=== PATIENT | male | born 1980 | race Caucasian/White ===

== ENCOUNTER 2019-06-10 20:23 | Emergency (ER) | payer SELFPAY ==
[~2019-06-10] VITALS: Ht 182.9 cm; Wt 78.5 kg
[2019-06-10 20:27] VITALS: Ht 182.9 cm; Wt 78.5 kg
[2019-06-10 21:35] VITALS: BP 116/70
== END 2019-06-10 21:35 | disposition home or self-care (01) ==
LOC: ED 20:23
DX: J03.00 Acute streptococcal tonsillitis, unspecified (principal); F17.210 Nicotine dependence, cigarettes, uncomplicated; E11.9 Type 2 diabetes mellitus without complications
CPT/HCPCS: 99406